=== PATIENT | male | born 1955 | race Caucasian/White ===

== ENCOUNTER → 2016-08-12 | Outpatient (CLI) | payer BC ==
--- NOTE | 2016-08-12 11:27 | CT ---
EXAMINATION TYPE: CT sinus wo con DATE OF EXAM: 08/12/2016 11:22 AM COMPARISON: NONE HISTORY: Chronic Sinusitis CT DLP: [address] of the paranasal sinuses was performed in the axial and coronal planes. Bone and soft tissue settings are submitted. The paranasal sinuses demonstrate normal aeration and development. Mild mucosal thickening at the base of the right maxillary sinus. No air-fluid levels identified. The osteal meatal units are patent bilaterally. The nasal septum is midline. No bony destructive changes are seen within the field of view. IMPRESSION: Chronic sinusitis right maxillary sinus.
== END | disposition home or self-care (01) ==
LOC: RADCTMAIN 10:45
PROVIDERS: ATTEND Family Medicine
DX: J32.9 Chronic sinusitis, unspecified (principal)
CPT/HCPCS: 70486

== ENCOUNTER → 2019-12-10 | Outpatient (CLI) | payer BC ==
--- NOTE | 2019-12-10 15:24 | XR ---
EXAMINATION TYPE: XR thoracic spine 2V DATE OF EXAM: 12/10/2019 COMPARISON: None HISTORY: Thoracic spine pain TECHNIQUE: Three-view thoracic spine FINDINGS: There are 12 thoracic type vertebral bodies. Pedicles are intact. Mild diffuse disc space n arrowing is present. There is some flowing anterior longitudinal ligament calcification. Correlate fo r DISH. Vertebral body heights are preserved. IMPRESSION: 1. Clinical consideration for diffuse idiopathic skeletal hyperostosis (DISH) is recommended. 2. No acute osseous abnormality.
--- NOTE | 2019-12-10 15:24 | XR ---
EXAMINATION TYPE: XR cervical spine limited DATE OF EXAM: 12/10/2019 COMPARISON: None HISTORY: Cervicalgia TECHNIQUE: 4 view cervical spine FINDINGS: Prevertebral space is normal. Some anterior vertebral body spurring is noted. Posterior patricia tebral endplate spurring is present C5-6 C6-7. Posterior spinal lamellar line is intact. Multiple att empts to visualize the odontoid are limited. IMPRESSION: 1. Degenerative disc changes within the mid cervical spine
== END | disposition home or self-care (01) ==
LOC: RADXRMAIN 12:07
PROVIDERS: ATTEND Family Medicine
DX: M47.892 Other spondylosis, cervical region (principal); M54.6 Pain in thoracic spine; M54.2 Cervicalgia
CPT/HCPCS: 72040; 72070

== ENCOUNTER → 2020-08-17 | Outpatient (CLI) | payer BC ==
--- NOTE | 2020-08-17 11:16 | US ---
EXAMINATION TYPE: US duplex aorta DATE OF EXAM: 08/17/2020 COMPARISON: NONE CLINICAL HISTORY: E78.5 hyperlipidemia,unspecified. EXAM MEASUREMENTS: Abdominal Aorta: Proximal: Unable to see Mid: 2.3 x 2.2 cm Distal: 1.8 x 1.6 cm Bifurcation: 1.0 cm 1.0 cm Proximal Aorta obscured by bowel gas. No AAA seen elsewhere. IMPRESSION: No evidence for abdominal aortic aneurysm.
== END | disposition home or self-care (01) ==
LOC: RADUSWWP 10:41
PROVIDERS: ATTEND Family Medicine
DX: E78.5 Hyperlipidemia, unspecified (principal)
CPT/HCPCS: 93979

== ENCOUNTER → 2022-06-27 | Outpatient (CLI) | payer BC | END | disposition home or self-care (01) | LOC: LABWHC1 11:37 | PROVIDERS: ATTEND Urology | DX: R97.20 Elevated prostate specific antigen [PSA] (principal) | CPT/HCPCS: 36415; 84153 ==

== ENCOUNTER → 2023-07-02 | Outpatient (CLI) | payer BC | END | disposition home or self-care (01) | LOC: LABWHC1 11:50 | PROVIDERS: ATTEND Urology | DX: R97.20 Elevated prostate specific antigen [PSA] (principal) | CPT/HCPCS: 36415; 84153 ==

== ENCOUNTER → 2024-08-25 | Outpatient (CLI) | payer BC | END | disposition home or self-care (01) | LOC: LABWHC1 09:14 | PROVIDERS: ATTEND Urology | DX: R97.20 Elevated prostate specific antigen [PSA] (principal) | CPT/HCPCS: 36415; 84153 ==